=== PATIENT | female | born 1960 | race Caucasian/White ===

== ENCOUNTER 2016-11-12 09:43 | Emergency (ER) | payer BC ==
[2016-11-12] MEDS ORDERED: HYDROmorphone 2 MG/1 ML IVP ONE (10:15)
[2016-11-12] MEDS ORDERED: NORMAL SALINE 10 ML SYRINGE FLUSH IVP PRN (10:15)
[2016-11-12] MEDS ORDERED: Sodium Chloride 0.9% 1,000 ML PRIMARY IV ONE (10:16)
[2016-11-12] MEDS ORDERED: KETOROLAC 15 MG/1 ML VIAL IVP ONE (10:16)
[2016-11-12 10:25] LABS: BASOPHILS # (AUTO) 0.03 10*3/UL; BASOPHILS % (AUTO) 0.3 % (0-1); EOSINOPHILS # (AUTO) 0.03 10*3/UL; EOSINOPHILS % (AUTO) 0.3 % (0-8); HEMATOCRIT 42.4 % (37.0-47.0); HEMOGLOBIN 14.4 g/dL (12.0-16.0); LYMPHOCYTES # (AUTO) 0.92 10*3/uL; MEAN CORPUSCULAR HEMOGLOBIN 30.8 PG (27-31); MEAN CORPUSCULAR VOLUME 90.6 FL (81-99); MEAN PLATELET VOLUME 9.4 FL (7.4-12.2); MONOCYTES # (AUTO) 1.32 10*3/UL (0.3-0.8); MONOCYTES % (AUTO) 11.8 % (5-15); NEUTROPHILS # (AUTO) 8.82 10*3/UL; RED BLOOD COUNT 4.68 10^6/uL (4.20-5.40)
[2016-11-12 10:26] LABS: PLATELET MORPHOLOGY COMMENT NORMAL MORPHOLOGY (NORM); RBC MORPHOLOGY COMMENT NORMAL MORPHOLOGY (NORM); WBC MORPHOLOGY COMMENT NORMAL MORPHOLOGY (NORM)
[2016-11-12] MEDS: ONDANSETRON 4 MG/2 ML VIAL IVP ONE ×2 (10:33→11:38)
[2016-11-12 11:09] LABS: ERYTHROCYTE SEDIMENTATION RATE 14 MM/HR (0-20)
[2016-11-12] MEDS ORDERED: diphenhydrAMINE 50 MG/1 ML VIAL IVP ONE (11:23)
[2016-11-12] MEDS ORDERED: Famotidine Inj 20 MG in Normal Saline Flush 10 ML IVP ONE (11:51)
--- NOTE | 2016-11-12 12:29 | PDOC ---
Back Pain / Injury HPI - General Chief Complaint: Neck / Back Complaint Stated Complaint: ACUTE SCIATICA Date Seen by Provider: 11/12/16 Time Seen by Provider: 10:15 - History of Present Illness Initial Comments: Patient is a very nice 56-year-old woman who unfortunately suffers from multiple sclerosis. She was in her normal state of health until last couple of weeks where she's noticed some increasing lower back pain and discomfort that has increased over that timeframe. She had an episode where she had a grandchild's care her from behind just couple days ago which caused her to startle and have a kendra setting of her back. She's noticed some increased pain since that time but this is something is been lingering for some time. She denies fever or chills. She has also started to notice some cold with your incontinence as well. This is not typical for her. She has not had problems with that in regards to her MS in the past. She's had no fecal incontinence. She's had no saddle anesthesia. - Patient Home Medications Home Medications: Home Medications Fluticasone Propionate 1 spr IN BID #1 bottle 12/10/10 Montelukast Sodium [Singulair] 10 mg ORAL QD #30 tab 12/10/10 Dimethyl Fumarate [Tecfidera] 240 mg PO BID cap 11/24/15 Gabapentin 1 cap PO QPM cap 11/24/15 Spironolactone 25 mg PO DAILY 11/12/16 - Patient Allergies Allergies/Adverse Reactions: Allergies Allergy/AdvReac Type Severity Reaction Status Date / Time hydromorphone HCl Allergy Intermediate ITCHING Verified 11/12/16 13:08 [From Dilaudid] codeine Allergy Mild ITCHING Verified 11/12/16 09:59 Past Medical History - heen HEENT History: Denies History Cardiovascular History: Denies History Respiratory History: Denies History Gastrointestinal History: Denies History Genitourinary History: Denies History Endocrine History: Denies History Musculoskeletal History: Back Pain Prosthesis or Implant: Yes (CERVICAL FUSION) Neurological History: Multiple Sclerosis Blood Disorders: Denies History Psychiatric History: Denies History Female Reproductive History: Denies History Obstetrical History: Denies History Cancer History: Denies History In Past Year Been Physically Harmed or Verbally Threatened: No History of MDRO: No Tobacco Use: Current Every Day Smoker Alcohol Use: Rarely Substance Use Type: Marijuana Previous Surgical History: Yes Type / Date of Surgery: CERVICAL FUSION 2013 Anesthesia Reactions: No Significant Family History: Asthma, COPD, Heart disease, Lung disease Past Medical History Reviewed: Reviewed - No Changes ROS - Limitations ROS Limitations: No Limitations Constitution: DENIES: Chills, Fever Cardiovascular: REPORTS: Denies Cardiac Symptoms Respiratory: REPORTS: Denies Resp Symptoms Gastrointestinal: REPORTS: Denies GI Symptoms Musculoskeletal: REPORTS: Denies MS Symptoms Back Physical Assessment - General Appearance General Appearance: REPORTS: Alert, Cooperative, No Acute Distress - HEENT HEENT: POSITIVE: Head Inspection Nml, Eyes Inspection Nml - Neck Neck: POSITIVE: Non Tender, Painless ROM, Trachea Midline - Respiratory / CVS Respiratory / CVS: POSITIVE: Chest Non Tender, Breath Sounds Normal, No Respiratory Distress - Abdomen Abdomen: Soft: (All Quadrants), Normal Bowel Sounds: (All Quadrants), Denies Tenderness: (All Quadrants) - Back Back: REPORTS: Other (Pain in the midline in the low spine.) - Skin Skin: REPORTS: Intact, Normal For Race - Extremities Musculoskeletal: REPORTS: Back Pain - Neurological / Psychological Neuro / Psych: POSITIVE: Oriented X3, post form remover Normal As Tested, Motor Normal Back Progress - Results Reviewed by me Xrays/CTs/US Reviewed: Yes Lab Results Reviewed: Yes Lab Results:: Laboratory Results 11/12/16 Range/Units 10:19 WBC 11.16 H (4.8-10.8) 10^3/uL RBC 4.68 (4.20-5.40) 10^6/uL Hgb 14.4 (12.0-16.0) g/dL Hct 42.4 (37.0-47.0) % MCV 90.6 (81-99) FL MCH 30.8 (27-31) PG MCHC 34.0 (33-37) g/dL RDW Std Deviation 46.1 (39-50) fL RDW Coeff of Juliet 14.2 (11.5-14.5) % Plt Count 209 (140-350) 10*3/uL MPV 9.4 (7.4-12.2) FL Immature Gran % (Auto) 0.4 (0-5) % Neut % (Auto) 79.0 (50-80) % Lymph % (Auto) 8.2 L (10-50) % Early % (Auto) 11.8 (5-15) % Eos % (Auto) 0.3 (0-8) % Baso % (Auto) 0.3 (0-1) % Immature Gran # (Auto) 0.04 10*3/UL Neut # (Auto) 8.82 10*3/UL Lymph # (Auto) 0.92 10*3/uL Early # (Auto) 1.32 H (0.3-0.8) 10*3/UL Eos # (Auto) 0.03 10*3/UL Baso # (Auto) 0.03 10*3/UL WBC Morphology Comment Normal morphology (NORM) Plt Morphology Comment Normal morphology (NORM) RBC Morph Comment Normal morphology (NORM) ESR 14 (0-20) MM/HR C-Reactive Protein 14.3 H (0.0-0.9) mg/dL - Patient's Progress MDM / ED Course: This patient has multiple concerning abnormalities. First of all she has an increasing lower extremity back pain that has become very severe to the point where she can't sit still secondary to pain she also has new onset of urinary incontinence. MRI shows fluid accumulation in including involvement in the surrounding soft tissues at one of the facets with possible infectious etiology. Also severe canal stenosis at L4-5. Ultimately all these findings together with new onset of urinary incontinence and worsening back pain to the point of very severe I feel that she is be evaluated acutely by neurosurgery. The hospitalist at [facility] has agreed to accept the patient in transfer. Images of been sent over to the hospitalist the patient will be admitted there to the neurologic floor. Patient Care Time - Estimated PCT Patient Care Time (In Minutes): 40 Vital Signs - Recent Vital Signs Vital Signs: Vital Signs (Last 8 hours) Temp Pulse Resp BP Pulse Ox 11/12/16 11:26 83 14 111/67 85 11/12/16 10:00 98.5 F 90 18 137/80 92 - VS Reviewed Vital Signs Reviewed: Yes Discharge Clinical Impression: Sciatica, Acute low back pain Discharge Disposition: Transferred to Tertiary Care Facility Condition: Fair Follow Up With: TREY TOVAR [Primary Care Provider] - Date Decision to Transfer to Another Facility: 11/12/16 Time Decision to Transfer to Another Facility: 13:06
--- NOTE | 2016-11-12 12:34 | DI ---
HISTORY: Severe lower back pain with sciatica and urine incontinence. TECHNIQUE: Multiplanar multisequential images were obtained of the lumbar spine. FINDINGS: There is edema and some fluid collections just posterior to the left L4/5 facet joint and in adjacent soft tissues. Findings are nonspecific and may be infectious in etiology, however underl maritza nondisplaced fracture hard to completely exclude. CT may be helpful for further evaluation. Th ere is a focal T12/L1 left paracentral herniation impinging the canal and descending left L1 nerve ro ot. At L1/2 there is mild broad based herniation without significant canal stenosis. There is mild bilate ral foraminal stenosis. At L2/3 there is mild broad based herniation with ligamentous hypertrophy and mild canal stenosis. T here is mild bilateral foraminal stenosis. At L3/4 there is mild broad based herniation with ligamentous hypertrophy and moderate canal stenosis . There is mild bilateral foraminal stenosis. At L4/5 there is prominent broad based herniation with ligamentous hypertrophy and moderate to severe canal stenosis. There is moderate bilateral foraminal stenosis. At L5/S1 there is mild broad based herniation with ligamentous hypertrophy and mild canal stenosis. T here is mild bilateral foraminal stenosis. There is no evidence for acute compression fracture or subluxation. There is no spondylolisthesis or spondylolysis. IMPRESSION: 1. There is edema and some fluid collections just posterior to the left L4/5 facet joint and in jose cent soft tissues. Findings are nonspecific and may be infectious in etiology, however underlying tr aumatic etiology such as nondisplaced fracture hard to completely exclude. CT may be helpful for fur ther evaluation. 2. Multilevel disc herniations, foraminal and canal stenosis.
[2016-11-12 19:15] VITALS: RESP 16; TEMP 97.5
== END 2016-11-12 13:47 | disposition short-term general hospital (02) ==
LOC: ER 09:43
DX: K59.00 Constipation, unspecified (principal); G35 Multiple sclerosis; R10.84 Generalized abdominal pain; Z98.890 Other specified postprocedural states
CPT/HCPCS: 72148; 85025; 85652; 86140; 96374; 96375; 99284 ×2; J1200; J1170; J1885; J2405; J7030

== ENCOUNTER 2016-11-17 08:09 | Emergency (ER) | payer BC ==
--- NOTE | 2016-11-17 08:35 | PDOC ---
Abdomen/Flank HPI - General Chief Complaint: GI Bleed / Rectal Pain Stated Complaint: CONSTIPATION S/P BACK SURGERY Date Seen by Provider: 11/17/16 Time Seen by Provider: 08:30 Source: POSITIVE: Patient, Spouse Exam Limitations: POSITIVE: No limitations Nurse's Notes Reviewed & Considered: Yes - History of Present Illness Initial Comments: This very pleasant 56-year-old female comes in today with chief complaint of abdominal pain. Patient has not had a bowel movement in 7 days. She is status post back surgery for spinal stenosis and ruptured disc. She has been on narcotic pain medication since her surgery approximately a week ago. She states that she is now feeling bloated and unable to eat because of the pain in her abdomen. She denies any fever or chills but does have sweats, she denies headache, she does have fresh presently. She denies any chest pain or shortness of breath, no nausea or vomiting, no hematuria or dysuria, no myalgias or arthralgias. Addition to the patient's constipation secondary to narcotic pain medication she suffers from MS and its associated constipation. She states she has used multiple Colace tablets, 9 a day for the last 2 days, multiple fleets enemas, and no results. Body Location Affected: REPORTS: Abdomen Timing: REPORTS: Constant Duration: >1 week Severity: Severe Quality: REPORTS: Cramping, "Pain" Abdominal Pain Onset Location: REPORTS: Generalized abdomen Abdominal Pain Radiation: REPORTS: No radiation Context: REPORTS: Recent Surgery Modifying Factors: improves with: Nothing Associated Symptoms: REPORTS: Diaphoresis, Loss of Appetite Similar Symptoms Previously: No Recent Care Received: REPORTS: Recently Seen, Hospitalized, Surgery Any Prior Injuries Related to Current Complaint?: No - Patient Home Medications Home Medications: Home Medications Fluticasone Propionate 1 spr IN BID #1 bottle 12/10/10 Montelukast Sodium [Singulair] 10 mg ORAL QD #30 tab 12/10/10 Dimethyl Fumarate [Tecfidera] 240 mg PO BID cap 11/24/15 Gabapentin 1 cap PO QPM cap 11/24/15 Spironolactone 25 mg PO DAILY 11/12/16 Cyclobenzaprine HCl 10 mg PO TID 11/17/16 Docusate Sodium [Dulcolax Stool Softener] 900 mg PO PRN 11/17/16 Hydrocodone Bit/Acetaminophen [Hydrocodon-Acetaminophen 5-325] 1 - 2 tab PO PRN 11/17/16 - Patient Allergies Allergies/Adverse Reactions: Allergies Allergy/AdvReac Type Severity Reaction Status Date / Time hydromorphone HCl Allergy Intermediate ITCHING Verified 11/17/16 08:19 [From Dilaudid] codeine Allergy Mild ITCHING Verified 11/17/16 08:19 Past Medical History - heen HEENT History: Denies History Cardiovascular History: Denies History Respiratory History: Denies History Gastrointestinal History: Denies History Genitourinary History: Denies History Endocrine History: Denies History Musculoskeletal History: Back Pain Prosthesis or Implant: Yes (CERVICAL FUSION) Neurological History: Multiple Sclerosis Blood Disorders: Denies History Psychiatric History: Denies History Cancer History: Denies History History of MDRO: No Alcohol Use: Rarely Substance Use Type: Marijuana Previous Surgical History: Yes Type / Date of Surgery: CERVICAL FUSION 2013 Anesthesia Reactions: No Significant Family History: Asthma, COPD, Heart disease, Lung disease ROS - Limitations ROS Limitations: No Limitations Constitution: REPORTS: Diaphoresis Cardiovascular: REPORTS: Denies Cardiac Symptoms Respiratory: REPORTS: Denies Resp Symptoms Neurological: REPORTS: Denies Neuro Symptoms Gastrointestinal: REPORTS: Abdominal Pain, Constipation Endocrine: REPORTS: Denies Symptoms Musculoskeletal: REPORTS: Back Pain, Other (Recent surgery of her back.) Genitourinary: REPORTS: Denies Symptoms Eyes: REPORTS: Denies Symptoms ENT: REPORTS: Denies Symptoms Skin: REPORTS: Denies Skin Symptoms Lympathic: REPORTS: Denies Lympathic Symptoms Immunologic: POSITIVE: Denies Symptoms Psychiatric: POSITIVE: Denies Psych Symptoms Abdominal/Flank Pain PE - General Appearance General Appearance: POSITIVE: Alert, Cooperative, No Evidence of Trauma, Moderate Distress - HEENT HEENT: POSITIVE: Head Inspection Nml, Eyes Inspection Nml, Ears Inspection Nml, Nose Inspection Nml, PERRL, EOMI, Oral Lesions (White patchy areas of the mucous membranes consistent with thrush.) - Neck Neck: POSITIVE: Normal Inspection, No Apparent Injury - Respiratory Respiratory: POSITIVE: No Respiratory Distress, Breath Sounds Normal, Chest Non- Tender - Cardiovascular Cardiovascular: POSITIVE: Regular Rate and Rhythm, Heart Sounds Normal - Chest Chest: POSITIVE: Non Tender - Abdomen Abdomen: Soft: (All Quadrants), Normal Bowel Sounds: (All Quadrants), Tenderness Noted: (All Quadrants), Distention: (All Quadrants) - Back Back: POSITIVE: Normal Inspection - Skin Skin: POSITIVE: Intact, Normal For Race, Warm, Dry, No Rash - Extremities Extremity: Non-Tender: (All Extremities), Normal ROM: (All Extremities), Normal Inspection: (All Extremities), Pelvis Stable: (All Extremities) Abdomen Progress - Results Reviewed by me Xrays/CTs/US Reviewed by me: No Discussed with Radiologist: No - Patient's Progress Re-examine Time: 09:02 Status: POSITIVE: Unchanged Patient Care Time - Estimated PCT Patient Care Time (In Minutes): 15 Vital Signs - VS Reviewed Vital Signs Reviewed: Yes Discharge Clinical Impression: Constipation Discharge Disposition: Other (The end of my shift occurred at 0900 hrs. and care was transferred to Dr. Moy Daugherty, please see his dictation for assessment and plan.) Condition: Stable Patient Instructions Given at Discharge: Constipation (ED), High Fiber Diet (ED ) Care Transferred To: Dr. Moy Daugherty at 0900 hrs.
[2016-11-17 09:10] VITALS: RESP 16; TEMP 97.8
--- NOTE | 2016-11-17 11:41 | DI ---
CHEST X-RAY WITH ABDOMINAL SERIES, 11/17/2016 7:31 AM : Clinical History: Abdominal pain. Constipation. PA CHEST X-RAY: Previous Exam: 06/05/2016. There is no acute soft tissue or bony abnormality. There is no free air under the diaphragms. Heart s ize is normal. There is increased density behind the left heart that was not present on the prior exa m. Mediastinal structures are normal. There are no pulmonary nodules. Reading: There is a density in the left lower lobe that probably represents atelectasis with a small amount of fluid. Pneumonia or pulmonary embolism with infarct cannot be excluded. ABDOMINAL SERIES: Previous Exam: None at this facility. KUB and upright abdomen films are submitted. There are no soft tissue or bony abnormalities. Bowel ga s pattern, psoas margins, and flank stripes are normal. There is a normal amount of stool in the colo n without evidence of a fecalith action. There is no free air or fluid. But the density on the left h eart is even better demonstrated. There are no abnormal radiodensities. Readin. There is a left lower lobe density that either represents atelectasis, pneumonia, or pulmonary em bolism with infarction. A small pleural effusion is present. 2. The abdominal series itself is normal. There is no excessive stool or evidence of a fecal impacti on.
--- NOTE | 2016-11-17 20:27 | PDOC ---
General Adult HPI - General Chief Complaint: GI Bleed / Rectal Pain Stated Complaint: CONSTIPATION S/P BACK SURGERY Date Seen by Provider: 11/17/16 Time Seen by Provider: 09:00 Source: POSITIVE: Patient, RN/MD, Old records Exam Limitations: POSITIVE: No limitations Nurse's Notes Reviewed & Considered: Yes - History of Present Illness Initial Comment: The patient is a 56-year-old female. Patient states that she experienced an exacerbation of her chronic back pain about a week ago. She states she had an MRI of the lower back done by her neurosurgeon and she underwent surgical procedure for her back pain approximately 4 days ago. Patient has been on narcotic pain medications since. Patient complains of constipation for the past 4 days. Patient also states she has a history of multiple sclerosis which she states causes her constipation. She's not had any abdominal surgery. No vomiting. No fevers or chills. No melena, hematochezia, hematemesis, dysuria or hematuria. Patient was initially seen by Dr. Nieto, the emergency physician who was on duty when patient arrived to the emergency room. Dr. Nieto ordered enemas and an acute abdomen x-ray. Have you received a tetanus shot in the past 10 years?: Unknown Body Location Affected: REPORTS: Abdomen (Constipation) Timing: REPORTS: Constant Duration: >24 hours (Approximately 4 days) Severity: Moderate Quality: REPORTS: Other (Patient denies any abdominal pain) Context: REPORTS: Recent Surgery (Neurosurgery on lumbar spine 4 days ago.) Modifying Factors: worse with: Nothing, Analgesics, Antacids, Breathing, Coughing, Defecating, Vomiting, Eating, Exercise, Lying down, Urinating, Palpation, Movement, Rest, Upright Position, Walking, Remaining Still, Other Similar Symptoms Previously: Yes (history of constipation) Recent Care Received: REPORTS: Recently Seen, Treated by MD, Hospitalized, Surgery Any Prior Injuries Related to Current Complaint?: No - Patient Home Medications Home Medications: Home Medications Fluticasone Propionate 1 spr IN BID #1 bottle 12/10/10 Montelukast Sodium [Singulair] 10 mg ORAL QD #30 tab 12/10/10 Dimethyl Fumarate [Tecfidera] 240 mg PO BID cap 11/24/15 Gabapentin 1 cap PO QPM cap 11/24/15 Spironolactone 25 mg PO DAILY 11/12/16 Cyclobenzaprine HCl 10 mg PO TID 11/17/16 Docusate Sodium [Dulcolax Stool Softener] 900 mg PO PRN 11/17/16 Hydrocodone Bit/Acetaminophen [Hydrocodon-Acetaminophen 5-325] 1 - 2 tab PO PRN 11/17/16 - Patient Allergies Allergies/Adverse Reactions: Allergies Allergy/AdvReac Type Severity Reaction Status Date / Time hydromorphone HCl Allergy Intermediate ITCHING Verified 11/17/16 08:19 [From Dilaudid] codeine Allergy Mild ITCHING Verified 11/17/16 08:19 Past Medical History - heen HEENT History: Denies History Cardiovascular History: Denies History Respiratory History: Denies History Gastrointestinal History: Denies History Genitourinary History: Denies History Endocrine History: Denies History Musculoskeletal History: Back Pain Prosthesis or Implant: Yes (CERVICAL FUSION) Neurological History: Multiple Sclerosis Blood Disorders: Denies History Psychiatric History: Denies History History of Sexually Transmitted Diseases: No Cancer History: Denies History In Past Year Been Physically Harmed or Verbally Threatened: No History of MDRO: No History of Other Communicable Diseases: No Tobacco Use: Current Every Day Smoker Alcohol Use: Rarely Substance Use Type: Marijuana Previous Surgical History: Yes Type / Date of Surgery: CERVICAL FUSION 2013 Anesthesia Reactions: No Significant Family History: Asthma, COPD, Heart disease, Lung disease Past Medical History Reviewed: Reviewed - No Changes ROS - Limitations ROS Limitations: No Limitations Constitution: REPORTS: Denies Symptoms Cardiovascular: REPORTS: Denies Cardiac Symptoms Respiratory: REPORTS: Denies Resp Symptoms Neurological: REPORTS: Denies Neuro Symptoms Gastrointestinal: REPORTS: Constipation Endocrine: REPORTS: Denies Symptoms Musculoskeletal: REPORTS: Denies MS Symptoms Genitourinary: REPORTS: Denies Symptoms Eyes: REPORTS: Denies Symptoms ENT: REPORTS: Denies Symptoms Skin: REPORTS: Denies Skin Symptoms Lympathic: REPORTS: Denies Lympathic Symptoms Immunologic: POSITIVE: Denies Symptoms Psychiatric: POSITIVE: Denies Psych Symptoms General Adult Exam - General Appearance General Appearance: POSITIVE: Alert, Cooperative, No Acute Distress, No Evidence of Trauma - Pupils Pupil Size: 3 mm: Bilateral - Neck Neck: POSITIVE: Normal Inspection, Thyroid Normal - Respiratory Respiratory: POSITIVE: No Respiratory Distress, Breath Sounds Normal, Chest Non- Tender - Cardiovascular Cardiovascular: POSITIVE: Regular Rate & Rhythm, No Murmur, No Gallop, PMI Normal Peripheral Pulses: Radial (R): 2+, Radial (L): 2+ - Abdomen Abdomen: Soft: (All Quadrants), Normal Bowel Sounds: (All Quadrants), Denies Tenderness: (All Quadrants), No Splenomegaly: (All Quadrants), No Hepatomegaly: (All Quadrants), No Guarding: (All Quadrants), No Rebound: (All Quadrants), No Palpable Pulse: (All Quadrants), No Palpabale Mass: (All Quadrants), No Distention: (All Quadrants), No Rigidity: (All Quadrants) - Rectal Rectal: POSITIVE: Non Tender, Normal Rectal Tone, Heme Negative Stool, Other ( Hemorrhoids noted). 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 Nieto with good results. Patient states she feels much better on discharge.) General Adult Progress - Results Reviewed by me Xrays/CTs/US Reviewed by me: Yes Discussed with Radiologist: No Radiology Findings: Acute abdominal series shows no radiographic signs of obstruction or other intra-abdominal problems. - Patient's Progress Pain Medication Addressed: POSITIVE: Not Applicable School/Work Release Addressed: POSITIVE: Not Applicable Re-Examine Time: 10:10 Re-Examine Comment: Good results from enemas. Patient feels better on discharge Status: POSITIVE: Improved, Re-Examined Antibiotics Given: No - Consult Counseled: POSITIVE: Patient, Family, RE: Radiology Results, RE: DX, RE: Need for F/U Patient Care Time - Estimated PCT Patient Care Time (In Minutes): 40 Vital Signs - VS Reviewed Vital Signs Reviewed: Yes Discharge Clinical Impression: Constipation Discharge Disposition: Discharged to Home Condition: Stable Patient Instructions Given at Discharge: Constipation (ED), High Fiber Diet (ED ) Additional Instructions: High fiber diet. Increase fluids. One or 2 bottles of magnesium citrate today. Follow-up with your primary care provider and neurosurgeon as arranged. Return here anytime if condition worsens in any way. Follow Up With: CRUZITO BARBOSA [Primary Care Provider] - (Instructions as above. Return here anytime if condition worsens.)
== END 2016-11-17 10:25 | disposition home or self-care (01) ==
LOC: ER 08:09
DX: K59.09 Other constipation (principal); R10.84 Generalized abdominal pain; G35 Multiple sclerosis; Z98.890 Other specified postprocedural states; Z72.0 Tobacco use
CPT/HCPCS: 74022; 99283